=== PATIENT | female | born 1950 | race Caucasian/White ===

== ENCOUNTER → 2018-03-21 | Outpatient (CLI) | payer MEDICARE | END | disposition home or self-care (01) | LOC: RAD 08:35 | PROVIDERS: ATTEND Specialist | DX: K21.9 Gastro-esophageal reflux disease without esophagitis (principal); R18.8 Other ascites; K44.9 Diaphragmatic hernia without obstruction or gangrene | CPT/HCPCS: 74245 ==

== ENCOUNTER 2018-04-01 05:20 | Inpatient (IN) | payer MEDICARE ==
[2018-03-29 09:50] LABS: BASOPHILS % (AUTO) 0 % (0-1); EOSINOPHILS # (AUTO) 0.01 x10^3/uL (0-0.4); EOSINOPHILS % (AUTO) 0 % (1-7); LYMPHOCYTES # (AUTO) 1.05 x10^3/uL (1-3.4); LYMPHOCYTES % (AUTO) 10 % (22-44); MD NO; MEAN CORPUSCULAR HEMOGLOBIN 23.7 pg (27.0-34.8); MEAN CORPUSCULAR HGB CONC 32.2 g/dL (32.4-35.8); MEAN CORPUSCULAR VOLUME 73.7 fL (80-100); MEAN PLATELET VOLUME 7.5 fL (7.4-10.4); MONOCYTES # (AUTO) 0.77 x10^3/uL (0.2-0.8); MONOCYTES % (AUTO) 7 % (2-9); NEUTROPHILS # (AUTO) 9.02 x10^3/uL (1.8-6.8); NEUTROPHILS % (AUTO) 83 % (42-75); PLATELET COUNT 625 x10^3/uL (130-400); RED BLOOD COUNT 5.28 x10^6/uL (3.82-5.3); RED CELL DISTRIBUTION WIDTH 19.8 % (9.6-15.2)
[2018-03-29 09:53] LABS: ALBUMIN 3.1 g/dL (3.4-5.0); ANION GAP 16 mmol/L (5-15); CHLORIDE 86 mmol/L (98-107)
[2018-03-29 09:57] LABS: ALANINE AMINOTRANSFERASE 23 U/L (12-78); ALKALINE PHOSPHATASE 59 U/L (45-117); BILIRUBIN,TOTAL 0.6 mg/dL (0.2-1.0); CREATININE 1.34 mg/dL (0.55-1.02); TOTAL PROTEIN 6.7 g/dL (6.4-8.2)
[2018-03-29 10:08] LABS: INTERNATIONAL NORMALIZED RATIO 1.08 (0.93-1.1); PROTHROMBIN TIME 11.2 Seconds (9.6-11.5)
[~2018-04-01] VITALS: Ht 154.9 cm; Wt 73.7 kg
[~2018-04-01 05:20] MED LIST: FURO20TA3 PO; MYCO500T PO; OMEP-110 PO; SPIR50TA4 PO
[2018-04-01] MEDS ORDERED: LACTATED RINGERS 1,000 ML IV SCH (06:01)
[2018-04-01 06:15] VITALS: BP 119/79
[2018-04-01] MEDS ORDERED: HEPARIN 1,000 UNITS/ML, 10ML ONE (06:51)
[2018-04-01] MEDS ORDERED: INDOCYANINE GREEN 25 MG VIAL ONE (06:51)
[2018-04-01] MEDS ORDERED: BUPIVACAINE/PF-EPI 0.25% 1:200K ONE (06:51)
[2018-04-01] MEDS ORDERED: FENTANYL PF 250 MCG/5ML ONE (07:25)
[2018-04-01] MEDS ORDERED: MIDAZOLAM 1 MG/ML, 2ML ONE (07:25)
[2018-04-01] MEDS ORDERED: GLYCOPYRROLATE 0.2MG/1ML, 5ML ONE (07:44)
[2018-04-01] MEDS ORDERED: ROCURONIUM 10 MG/ML,10ML ONE (07:44)
[2018-04-01] MEDS ORDERED: ONDANSETRON 2MG/ML, 2ML ONE (07:44)
[2018-04-01] MEDS ORDERED: DEXAMETHASONE 4 MG/ML, 1ML ONE (07:44)
[2018-04-01] MEDS ORDERED: CEFAZOLIN 1,000 MG ONE (07:44)
[2018-04-01] MEDS ORDERED: PHENYLEPHRINE 10 MG/ML ONE (07:44)
[2018-04-01] MEDS ORDERED: PROPOFOL 10 MG/ML, 20ML ONE (07:44)
[2018-04-01] MEDS ORDERED: NEOSTIGMINE 1 MG/ML, 10ML ONE (07:44)
[2018-04-01] MEDS ORDERED: OXYcodone 5 MG/5 ML ORAL.SOL UDC PO PRN (08:00)
[2018-04-01] MEDS ORDERED: ONDANSETRON ODT 8 MG PO PRN (08:00)
[2018-04-01] MEDS ORDERED: HYDROmorphone 1 MG/ML, 1ML IV PRN (08:00)
[2018-04-01] MEDS ORDERED: MORPHINE SULFATE 4 MG/ML, 1ML IVPush PRN (08:00)
[2018-04-01] MEDS ORDERED: FENTANYL PF 100 MCG/2ML IV PRN (08:00)
[2018-04-01] MEDS ORDERED: ACETAMINOPHEN 325 MG TABLET PO PRN (08:00)
[2018-04-01] MEDS ORDERED: PROMETHAZINE 25 MG/ML, 1ML IV PRN (08:00)
[2018-04-01] MEDS ORDERED: BUPIVACAINE/PF-EPI 0.25% 1:200K INFIL ONE (08:30)
[2018-04-01] MEDS ORDERED: SUGAMMADEX 200 MG/2 ML IVPush ONE (09:28)
[2018-04-01] MEDS ORDERED: MEPERIDINE/PF 50 MG/ML ONE (10:06)
[2018-04-01] MEDS: MEPERIDINE/PF 25MG/0.5ML IVPush PRN ×2 (10:23→10:39)
[2018-04-01] MEDS ORDERED: OXYcodone 5 MG/5 ML ORAL.SOL UDC ONE (10:30)
[2018-04-01] MEDS ORDERED: ACETAMINOPHEN 650 MG/20.3 ML UDC ONE (10:30)
== END 2018-04-01 16:10 | disposition home or self-care (01) | DRG 736 ==
LOC: ORIP 05:20
PROVIDERS: ADMIT Specialist; ATTEND Specialist
PROC: 0UT04ZZ Resection of Right Ovary, Percutaneous Endoscopic Approach (ICD-10-PCS; 2018-04-01)
PROC: 0DTJ4ZZ Resection of Appendix, Percutaneous Endoscopic Approach (ICD-10-PCS; 2018-04-01)
PROC: 8E0W4CZ Robotic Assisted Procedure of Trunk Region, Percutaneous Endoscopic Approach (ICD-10-PCS; 2018-04-01)
PROC: 8E0W3CZ Robotic Assisted Procedure of Trunk Region, Percutaneous Approach (ICD-10-PCS; 2018-04-01)
PROC: 0UT54ZZ Resection of Right Fallopian Tube, Percutaneous Endoscopic Approach (ICD-10-PCS; principal; 2018-04-01 07:30)
DX: C56.9 Malignant neoplasm of unspecified ovary (principal); N17.0 Acute kidney failure with tubular necrosis; C78.6 Secondary malignant neoplasm of retroperitoneum and peritoneum; R18.8 Other ascites; J91.0 Malignant pleural effusion; Z90.710 Acquired absence of both cervix and uterus; Z79.899 Other long term (current) drug therapy
CPT/HCPCS: 36415; 71046; 80053; 85025; 85610; 85730; 86304; 86850; 86900; 86923; 88304; 88305; 93005; J0690; J1100; J1644; J2175; J2250; J2405; J2704; J2710; J3010; J3490; J2370; J7120

== ENCOUNTER 2018-04-12 23:32 | Inpatient (IN) | payer MEDICARE ==
[~2018-04-12] VITALS: Ht 154.9 cm; Wt 72.0 kg
[2018-04-13] MEDS ORDERED: MORPHINE SULFATE 4 MG/ML, 1ML ONE (00:15)
[2018-04-13] MEDS ORDERED: SODIUM CHLORIDE FLUSH 10ML SYR IVF ONE (00:30)
[2018-04-13] MEDS ORDERED: MORPHINE SULFATE 4 MG/ML, 1ML IVPush PRN (00:30)
[2018-04-13 01:01] LABS: BASOPHILS # (AUTO) 0.07 x10^3/uL (0-0.1); BASOPHILS % (AUTO) 1 % (0-1); EOSINOPHILS # (AUTO) 0.01 x10^3/uL (0-0.4); EOSINOPHILS % (AUTO) 0 % (1-7); LYMPHOCYTES # (AUTO) 1.25 x10^3/uL (1-3.4); LYMPHOCYTES % (AUTO) 14 % (22-44); MD NO; MEAN CORPUSCULAR HEMOGLOBIN 24.7 pg (27.0-34.8); MEAN CORPUSCULAR HGB CONC 32.9 g/dL (32.4-35.8); MEAN CORPUSCULAR VOLUME 75.1 fL (80-100); MEAN PLATELET VOLUME 6.4 fL (7.4-10.4); MONOCYTES % (AUTO) 6 % (2-9); NEUTROPHILS % (AUTO) 80 % (42-75); PLATELET COUNT 704 x10^3/uL (130-400); RED BLOOD COUNT 4.17 x10^6/uL (3.82-5.3); RED CELL DISTRIBUTION WIDTH 21.2 % (9.6-15.2)
[2018-04-13 01:11] LABS: INTERNATIONAL NORMALIZED RATIO 1.04 (0.93-1.1); PROTHROMBIN TIME 10.7 Seconds (9.6-11.5)
[2018-04-13 01:13] LABS: ALBUMIN 2.5 g/dL (3.4-5.0); ANION GAP 8 mmol/L (5-15); CALCIUM 8.2 mg/dL (8.5-10.1); CHLORIDE 93 mmol/L (98-107)
[2018-04-13 01:18] LABS: ALANINE AMINOTRANSFERASE 19 U/L (12-78); ALKALINE PHOSPHATASE 102 U/L (45-117); BILIRUBIN,TOTAL 0.5 mg/dL (0.2-1.0); CREATININE 0.88 mg/dL (0.55-1.02); TOTAL PROTEIN 5.9 g/dL (6.4-8.2)
[2018-04-13 03:00] VITALS: BP 134/86
[2018-04-13 03:08] VITALS: BP 134/86
[2018-04-13] MEDS ORDERED: DOCUSATE 100 MG CAPSULE PO PRN (04:30)
[2018-04-13] MEDS ORDERED: PROMETHAZINE 25 MG/ML, 1ML IM PRN (04:30)
[2018-04-13] MEDS ORDERED: ONDANSETRON ODT 4 MG PO PRN (04:30)
[2018-04-13] MEDS ORDERED: hydrALAzine 20 MG/ML, 1ML IVPush PRN (04:30)
[2018-04-13] MEDS ORDERED: OXYcodone IR 5MG TABLET PO PRN (04:30)
[2018-04-13] MEDS ORDERED: POLYETHYLENE GLYCOL 17 GM PACKET PO PRN (04:30)
[2018-04-13] MEDS ORDERED: LABETALOL 5MG/ML, 20ML IVPush PRN (04:30)
[2018-04-13] MEDS ORDERED: morphine SULFATE 10 MG/ML, 1ML IVPush PRN (04:30)
[2018-04-13] MEDS ORDERED: ONDANSETRON 2MG/ML, 2ML IVPush PRN (04:30)
[2018-04-13] MEDS ORDERED: BISACODYL 10 MG SUPP PR PRN (04:30)
[2018-04-13] MEDS ORDERED: ENALAPRILAT 1.25 MG/ML, 2ML IVPush PRN (04:30)
[2018-04-13] MEDS: ALBUMIN HUMAN 25% 100 ML IV SCH ×3 (04:33→20:08)
[2018-04-13] MEDS: HEPARIN 5,000 UNITS/ML, 1ML SQ SCH ×3 (04:34→20:10)
[2018-04-13] MEDS: FUROSEMIDE 20 MG/2 ML IV SCH ×2 (04:34→08:42)
[2018-04-13 06:44] LABS: HEMOGLOBIN A1C 6.2 % (4.2-6.3)
[2018-04-13 06:51] LABS: CULTURE INDICATED? YES; MICROSCOPIC AUTO
[2018-04-13 06:53] LABS: FREE T4 (FREE THYROXINE) 1.27 ng/dL (0.76-1.46); THYROID STIMULATING HORMONE 31.5 mIU/L (0.358-3.740)
[2018-04-13] MEDS: CEFTRIAXONE 1,000 MG in SODIUM CHLORIDE 0.9% 50 ML IV SCH (08:42)
[2018-04-13] MEDS: SPIRONOLACTONE 50 MG TABLET PO SCH (08:42)
[2018-04-13] MEDS: OMEPRAZOLE 20 MG CAPSULE.DR PO SCH (08:42)
[2018-04-13 08:59] LABS: ANION GAP 14 mmol/L (5-15); CHLORIDE 94 mmol/L (98-107)
[2018-04-13 09:01] LABS: CREATININE 0.91 mg/dL (0.55-1.02)
[2018-04-13 09:45] VITALS: BP 102/68
[2018-04-13 13:25] VITALS: BP 98/63
[2018-04-13] MEDS ORDERED: AMLODIPINE 5 MG TABLET PO ONE (16:00)
[2018-04-13] MEDS ORDERED: POTASSIUM CHLORIDE 20 MEQ TAB.ER.PRT PO SCH (17:00)
[2018-04-13 17:46] LABS: ANION GAP 10 mmol/L (5-15); CALCIUM 7.9 mg/dL (8.5-10.1); CHLORIDE 93 mmol/L (98-107); CREATININE 0.87 mg/dL (0.55-1.02)
[2018-04-13 19:47] VITALS: BP 103/68
[2018-04-14 01:32] VITALS: BP 102/65
[2018-04-14 04:45] LABS: BASOPHILS # (AUTO) 0.07 x10^3/uL (0-0.1); BASOPHILS % (AUTO) 1 % (0-1); EOSINOPHILS # (AUTO) 0.02 x10^3/uL (0-0.4); EOSINOPHILS % (AUTO) 0 % (1-7); LYMPHOCYTES # (AUTO) 0.91 x10^3/uL (1-3.4); LYMPHOCYTES % (AUTO) 14 % (22-44); MD NO; MEAN CORPUSCULAR HEMOGLOBIN 24.6 pg (27.0-34.8); MEAN CORPUSCULAR HGB CONC 32.9 g/dL (32.4-35.8); MEAN CORPUSCULAR VOLUME 74.7 fL (80-100); MEAN PLATELET VOLUME 6.4 fL (7.4-10.4); MONOCYTES # (AUTO) 0.58 x10^3/uL (0.2-0.8); MONOCYTES % (AUTO) 9 % (2-9); NEUTROPHILS # (AUTO) 5.15 x10^3/uL (1.8-6.8); NEUTROPHILS % (AUTO) 77 % (42-75); PLATELET COUNT 583 x10^3/uL (130-400); RED BLOOD COUNT 3.75 x10^6/uL (3.82-5.3); RED CELL DISTRIBUTION WIDTH 21.5 % (9.6-15.2)
[2018-04-14] MEDS: HEPARIN 5,000 UNITS/ML, 1ML SQ SCH ×3 (04:48→20:33)
[2018-04-14] MEDS: ALBUMIN HUMAN 25% 100 ML IV SCH ×2 (04:48→11:36)
[2018-04-14] MEDS: LEVOTHYROXINE 25 MCG TABLET PO SCH (04:48)
[2018-04-14 04:49] LABS: ALANINE AMINOTRANSFERASE 13 U/L (12-78); ANION GAP 9 mmol/L (5-15); CHLORIDE 98 mmol/L (98-107)
[2018-04-14 04:52] LABS: ALKALINE PHOSPHATASE 71 U/L (45-117); BILIRUBIN,TOTAL 0.5 mg/dL (0.2-1.0); CHOL/HDL RATIO 4.2; CHOLESTEROL, TOTAL 110 mg/dL (140-239); CREATININE 0.65 mg/dL (0.55-1.02); HDL CHOL % 24 % (28-40); HDL CHOLESTEROL (DIRECT) 26 mg/dL (40-60); LDL CHOLESTEROL,CALCULATED 62 mg/dL (54-169); LDL/HDL RATIO 2.4 (0.5-3.0); TOTAL PROTEIN 5.5 g/dL (6.4-8.2); TRIGLYCERIDES 109 mg/dL (50-200); VLDL CHOLESTEROL 22 mg/dL (0-25)
[2018-04-14 07:15] VITALS: BP 108/75
[2018-04-14] MEDS: SPIRONOLACTONE 50 MG TABLET PO SCH (08:30)
[2018-04-14] MEDS: OMEPRAZOLE 20 MG CAPSULE.DR PO SCH (08:30)
[2018-04-14] MEDS: FUROSEMIDE 20 MG/2 ML IV SCH (08:30)
[2018-04-14] MEDS: CEFTRIAXONE 1,000 MG in SODIUM CHLORIDE 0.9% 50 ML IV SCH (08:30)
[2018-04-14] MEDS: CHOLECALCIFEROL 1,000 UNIT TABLET PO SCH (08:30)
[2018-04-14 12:28] VITALS: BP 99/69
[2018-04-14 19:38] VITALS: BP 101/74
[2018-04-15 03:57] VITALS: BP 106/78
[2018-04-15 04:30] LABS: ALBUMIN 3.3 g/dL (3.4-5.0); ANION GAP 9 mmol/L (5-15); CALCIUM 8.1 mg/dL (8.5-10.1); CHLORIDE 98 mmol/L (98-107); CREATININE 0.68 mg/dL (0.55-1.02)
[2018-04-15 04:31] LABS: BASOPHILS # (AUTO) 0.04 x10^3/uL (0-0.1); BASOPHILS % (AUTO) 1 % (0-1); EOSINOPHILS # (AUTO) 0.03 x10^3/uL (0-0.4); EOSINOPHILS % (AUTO) 0 % (1-7); LYMPHOCYTES # (AUTO) 1.12 x10^3/uL (1-3.4); LYMPHOCYTES % (AUTO) 14 % (22-44); MD NO; MEAN CORPUSCULAR HEMOGLOBIN 24.8 pg (27.0-34.8); MEAN CORPUSCULAR HGB CONC 32.9 g/dL (32.4-35.8); MEAN CORPUSCULAR VOLUME 75.4 fL (80-100); MEAN PLATELET VOLUME 6.5 fL (7.4-10.4); MONOCYTES # (AUTO) 0.61 x10^3/uL (0.2-0.8); MONOCYTES % (AUTO) 8 % (2-9); NEUTROPHILS # (AUTO) 6.27 x10^3/uL (1.8-6.8); NEUTROPHILS % (AUTO) 78 % (42-75); PLATELET COUNT 616 x10^3/uL (130-400); RED BLOOD COUNT 4.01 x10^6/uL (3.82-5.3); RED CELL DISTRIBUTION WIDTH 21.7 % (9.6-15.2)
[2018-04-15] MEDS: HEPARIN 5,000 UNITS/ML, 1ML SQ SCH ×2 (04:50→12:30)
[2018-04-15] MEDS: LEVOTHYROXINE 25 MCG TABLET PO SCH (04:50)
[2018-04-15 08:05] VITALS: BP 111/76
[2018-04-15] MEDS: OMEPRAZOLE 20 MG CAPSULE.DR PO SCH (09:26)
[2018-04-15] MEDS: CHOLECALCIFEROL 1,000 UNIT TABLET PO SCH (09:26)
[2018-04-15] MEDS: CEFTRIAXONE 1,000 MG in SODIUM CHLORIDE 0.9% 50 ML IV SCH (09:26)
[2018-04-15] MEDS: SPIRONOLACTONE 50 MG TABLET PO SCH (09:27)
[2018-04-15] MEDS ORDERED: FUROSEMIDE 20 MG TABLET PO SCH (09:30)
[2018-04-15] MEDS ORDERED: NITR100C56 PO (11:54)
[2018-04-15] MEDS ORDERED: FURO40TA6 PO (11:54)
[2018-04-15] MEDS ORDERED: LEVO25TA2 PO (11:54)
[2018-04-15] MEDS ORDERED: CHOL10003 PO (11:54)
[2018-04-15 13:58] VITALS: BP 132/90
== END 2018-04-15 16:00 | disposition home or self-care (01) | DRG 640 ==
LOC: ED 23:59 → 3NW 04-13 03:28
PROVIDERS: ADMIT Internal Medicine; ATTEND Internal Medicine
DX: E87.1 Hypo-osmolality and hyponatremia (principal); E43 Unspecified severe protein-calorie malnutrition; C56.9 Malignant neoplasm of unspecified ovary; C78.7 Secondary malignant neoplasm of liver and intrahepatic bile duct; J91.0 Malignant pleural effusion; R18.8 Other ascites; C78.6 Secondary malignant neoplasm of retroperitoneum and peritoneum; N39.0 Urinary tract infection, site not specified; C78.00 Secondary malignant neoplasm of unspecified lung; D50.9 Iron deficiency anemia, unspecified; E02 Subclinical iodine-deficiency hypothyroidism; E55.9 Vitamin D deficiency, unspecified; E87.6 Hypokalemia; K21.9 Gastro-esophageal reflux disease without esophagitis; K75.4 Autoimmune hepatitis; Z90.721 Acquired absence of ovaries, unilateral; Z98.1 Arthrodesis status; M79.662 Pain in left lower leg; M79.661 Pain in right lower leg; Z68.30 Body mass index [BMI] 30.0-30.9, adult
CPT/HCPCS: 36415; 71045; 80048; 80053; 80061; 81001; 82040; 82306; 82607; 82728; 83036; 83540; 83550; 83735; 83880; 84439; 84443; 84466; 85025; 85610; 85730; 87086; 93005; 93306; 93970; 96374; J0696; J1644; P9047; J1940; J7517

== ENCOUNTER 2018-04-23 16:05 | Inpatient (IN) | payer MEDICARE ==
[~2018-04-23] VITALS: Ht 154.9 cm; Wt 74.6 kg
[~2018-04-23 16:05] MED LIST changes: +CHOL10003 PO; +FURO40TA6 PO; +LEVO25TA2 PO; +NITR100C56 PO
[2018-04-23] MEDS ORDERED: SODIUM CHLORIDE 0.9% 1,000ML IVBOLUS ONE ×2 (16:30→19:30)
[2018-04-23] MEDS ORDERED: SODIUM CHLORIDE FLUSH 10ML SYR IVF ONE (16:30)
[2018-04-23] MEDS ORDERED: PROMETHAZINE 25 MG/ML, 1ML ONE (16:49)
[2018-04-23] MEDS ORDERED: MORPHINE SULFATE 4 MG/ML, 1ML ONE (16:50)
[2018-04-23 16:51] LABS: ALBUMIN 3.5 g/dL (3.4-5.0); ANION GAP 11 mmol/L (5-15); CALCIUM 8.6 mg/dL (8.5-10.1); CHLORIDE 91 mmol/L (98-107)
[2018-04-23] MEDS ORDERED: PROMETHAZINE 25 MG/ML, 1ML IM ONE (17:00)
[2018-04-23] MEDS ORDERED: ONDANSETRON 2MG/ML, 2ML IVPush ONE (17:00)
[2018-04-23] MEDS ORDERED: MORPHINE SULFATE 4 MG/ML, 1ML IVPush PRN (17:00)
[2018-04-23 17:10] LABS: MD YES; MEAN CORPUSCULAR HEMOGLOBIN 24.6 pg (27.0-34.8); MEAN CORPUSCULAR HGB CONC 33.2 g/dL (32.4-35.8); MEAN CORPUSCULAR VOLUME 73.9 fL (80-100); MEAN PLATELET VOLUME 7.6 fL (7.4-10.4); PLATELET COUNT 269 x10^3/uL (130-400); RED BLOOD COUNT 4.12 x10^6/uL (3.82-5.3); RED CELL DISTRIBUTION WIDTH 22.2 % (9.6-15.2)
[2018-04-23 17:33] LABS: EOS#(MANUAL) 0.02 x10^3/uL (0.0-0.4); EOS% (MANUAL) 3 % (1-7); LYMPH#(MANUAL) 0.43 x10^3/uL (1-3.4); LYMPHS% (MANUAL) 62 % (22-44); MONOS#(MANUAL) 0.07 x10^3/uL (0.3-2.7); MONOS% (MANUAL) 10 % (2-9); SEG#(MANUAL) 0.18 x10^3/uL (1.8-6.8); SEGS% (MANUAL) 25 % (42-75)
[2018-04-23 17:35] LABS: ANISOCYTOSIS 1+; HYPOCHROMIA 1+; MICROCYTOSIS 1+
[2018-04-23 17:36] LABS: <PLATELET ESTIMATE> ADEQUATE; <PLT MORPHOLOGY> NORMAL PLT MORPH; OVALOCYTES 1+; SMUDGE CELLS 1+
[2018-04-23 18:20] LABS: ACETONE, SERUM Trace (10mg/dL) mg/dL (Negative)
[2018-04-23 21:04] LABS: MICROSCOPIC INDICATED
[2018-04-23 21:07] LABS: CULTURE INDICATED? YES
[2018-04-23] MEDS ORDERED: SODIUM CHLORIDE 0.9% 1,000 ML IV ONE (21:15)
[2018-04-23] MEDS ORDERED: CEFEPIME 1 GM in DEXTROSE 5% 50 ML IV ONE (21:30)
[2018-04-23] MEDS ORDERED: CEFTRIAXONE 1,000 MG in SODIUM CHLORIDE 0.9% 50 ML IV ONE (21:30)
[2018-04-23 22:05] VITALS: BP 141/84
[2018-04-23 22:27] VITALS: BP 141/84
[2018-04-23] MEDS ORDERED: LIDOCAINE/PRILOCAINE CRM W/TEG 5GM TP PRN (23:00)
[2018-04-24] MEDS ORDERED: TBO-FILGRASTIM 480 MCG/0.8 ML SQ ONE
[2018-04-24] MEDS ORDERED: OXYcodone/APAP 5/325MG TABLET PO PRN
[2018-04-24 04:54] LABS: MEAN CORPUSCULAR HEMOGLOBIN 25.1 pg (27.0-34.8); MEAN CORPUSCULAR HGB CONC 33.3 g/dL (32.4-35.8); MEAN CORPUSCULAR VOLUME 75.2 fL (80-100); RED BLOOD COUNT 3.37 x10^6/uL (3.82-5.3); RED CELL DISTRIBUTION WIDTH 21.9 % (9.6-15.2)
[2018-04-24 04:57] VITALS: BP 135/87
[2018-04-24 05:24] LABS: MD YES; MEAN PLATELET VOLUME 7.8 fL (7.4-10.4); PLATELET COUNT 182 x10^3/uL (130-400)
[2018-04-24 05:30] LABS: ANISOCYTOSIS 1+; HYPOCHROMIA 1+; LYMPH#(MANUAL) 0.38 x10^3/uL (1-3.4); LYMPHS% (MANUAL) 76 % (22-44); MICROCYTOSIS 1+; OVALOCYTES 1+; SEG#(MANUAL) 0.12 x10^3/uL (1.8-6.8); SEGS% (MANUAL) 24 % (42-75); SMUDGE CELLS 1+
[2018-04-24 05:31] LABS: <PLATELET ESTIMATE> ADEQUATE; <PLT MORPHOLOGY> NORMAL PLT MORPH
[2018-04-24] MEDS: SODIUM CHLORIDE 0.9% 1,000 ML IV SCH ×3 (06:15→21:46)
[2018-04-24] MEDS: ONDANSETRON 2MG/ML, 2ML IVPush PRN ×3 (06:17→21:45)
[2018-04-24 07:52] VITALS: BP 118/79
[2018-04-24] MEDS ORDERED: POTASSIUM CHLORIDE 40 MEQ in SODIUM CHLORIDE 0.9% 500 ML IV ONE (10:30)
[2018-04-24 12:25] VITALS: BP 124/78
[2018-04-24] MEDS ORDERED: SPIRONOLACTONE 25 MG TABLET ONE (13:08)
[2018-04-24] MEDS: CEFEPIME 1 GM in DEXTROSE 5% 50 ML IV SCH ×2 (13:14→21:45)
[2018-04-24] MEDS: OMEPRAZOLE 20 MG CAPSULE.DR PO SCH (13:14)
[2018-04-24] MEDS: FUROSEMIDE 40 MG TABLET PO SCH (13:15)
[2018-04-24] MEDS: SPIRONOLACTONE 50 MG TABLET PO SCH (13:15)
[2018-04-24] MEDS: CHOLECALCIFEROL 1,000 UNIT TABLET PO SCH (13:15)
[2018-04-24 19:42] VITALS: BP 154/75
[2018-04-24 20:33] LABS: CLOSTRIDIUM DIFFICILE ANTIGEN NEGATIVE; CLOSTRIDIUM DIFFICILE TOXIN NEGATIVE (Negative)
[2018-04-24] MEDS: TBO-FILGRASTIM 480 MCG/0.8 ML SQ SCH (23:01)
[2018-04-25 00:32] VITALS: BP 156/98
[2018-04-25 04:48] LABS: CHLORIDE 103 mmol/L (98-107)
[2018-04-25 04:53] LABS: ALANINE AMINOTRANSFERASE 23 U/L (12-78); ALBUMIN 2.7 g/dL (3.4-5.0); ALKALINE PHOSPHATASE 79 U/L (45-117); ANION GAP 9 mmol/L (5-15); BILIRUBIN,TOTAL 0.9 mg/dL (0.2-1.0); CALCIUM 8.2 mg/dL (8.5-10.1); CREATININE 0.54 mg/dL (0.55-1.02); TOTAL PROTEIN 5.9 g/dL (6.4-8.2)
[2018-04-25 05:05] LABS: MEAN CORPUSCULAR HEMOGLOBIN 25.5 pg (27.0-34.8); MEAN CORPUSCULAR HGB CONC 33.6 g/dL (32.4-35.8); MEAN CORPUSCULAR VOLUME 75.9 fL (80-100); MEAN PLATELET VOLUME 7.1 fL (7.4-10.4); PLATELET COUNT 164 x10^3/uL (130-400); RED BLOOD COUNT 3.46 x10^6/uL (3.82-5.3); RED CELL DISTRIBUTION WIDTH 22.1 % (9.6-15.2)
[2018-04-25] MEDS: LEVOTHYROXINE 25 MCG TABLET PO SCH ×2 (05:16→08:00)
[2018-04-25] MEDS: SODIUM CHLORIDE 0.9% 1,000 ML IV SCH ×3 (05:16→21:00)
[2018-04-25] MEDS: CEFEPIME 1 GM in DEXTROSE 5% 50 ML IV SCH (05:16)
[2018-04-25] MEDS: PROCHLORPERAZINE 5 MG/ML, 2ML IVPush PRN ×2 (05:16→20:54)
[2018-04-25 05:32] LABS: MD YES
[2018-04-25 05:49] LABS: <PLATELET ESTIMATE> ADEQUATE; <PLT MORPHOLOGY> NORMAL PLT MORPH; ANISOCYTOSIS 1+; BAND#(MANUAL) 0.14 x10^3/uL; BANDS%(MANUAL) 16 % (0-7); HYPOCHROMIA 1+; LYMPH#(MANUAL) 0.23 x10^3/uL (1-3.4); LYMPHS% (MANUAL) 26 % (22-44); METAMYELOCYTES# (MANUAL) 0.02 x10^3/uL (0-0); METAMYELOCYTES% (MANUAL) 2 % (0-1); MICROCYTOSIS 1+; MONOS#(MANUAL) 0.23 x10^3/uL (0.3-2.7); MONOS% (MANUAL) 26 % (2-9); OVALOCYTES 1+; POLYCHROMASIA 1+; SEG#(MANUAL) 0.27 x10^3/uL (1.8-6.8); SEGS% (MANUAL) 30 % (42-75)
[2018-04-25 05:50] LABS: TOXIC GRAN 1+
[2018-04-25 07:33] VITALS: BP 131/85
[2018-04-25] MEDS: CHOLECALCIFEROL 1,000 UNIT TABLET PO SCH (08:01)
[2018-04-25] MEDS: OMEPRAZOLE 20 MG CAPSULE.DR PO SCH (08:01)
[2018-04-25] MEDS: FUROSEMIDE 40 MG TABLET PO SCH (08:01)
[2018-04-25] MEDS: SPIRONOLACTONE 50 MG TABLET PO SCH (08:02)
[2018-04-25] MEDS ORDERED: ERTAPENEM 1 GM in SODIUM CHLORIDE 0.9% 50 ML IV SCH (13:00)
[2018-04-25 13:18] VITALS: BP 136/82
[2018-04-25] MEDS: POTASSIUM CHLORIDE 20 MEQ PACKET PO SCH (20:54)
[2018-04-25 21:30] VITALS: BP 136/87
[2018-04-25] MEDS: TBO-FILGRASTIM 480 MCG/0.8 ML SQ SCH (22:13)
[2018-04-26 01:01] VITALS: BP 99/59
[2018-04-26 03:26] VITALS: BP 126/79
[2018-04-26] MEDS: SODIUM CHLORIDE 0.9% 1,000 ML IV SCH ×3 (05:00→20:22)
[2018-04-26 05:10] LABS: MEAN CORPUSCULAR HEMOGLOBIN 25.1 pg (27.0-34.8); MEAN CORPUSCULAR HGB CONC 33.1 g/dL (32.4-35.8); MEAN CORPUSCULAR VOLUME 75.9 fL (80-100); MEAN PLATELET VOLUME 7.4 fL (7.4-10.4); PLATELET COUNT 111 x10^3/uL (130-400); RED BLOOD COUNT 3.15 x10^6/uL (3.82-5.3); RED CELL DISTRIBUTION WIDTH 22.1 % (9.6-15.2)
[2018-04-26 05:14] LABS: ANION GAP 11 mmol/L (5-15); CALCIUM 7.9 mg/dL (8.5-10.1); CHLORIDE 102 mmol/L (98-107); CREATININE 0.47 mg/dL (0.55-1.02)
[2018-04-26 05:44] LABS: MD YES
[2018-04-26 05:47] LABS: BAND#(MANUAL) 0.42 x10^3/uL; BANDS%(MANUAL) 13 % (0-7)
[2018-04-26 05:48] LABS: LYMPH#(MANUAL) 0.58 x10^3/uL (1-3.4); LYMPHS% (MANUAL) 18 % (22-44); MONOS#(MANUAL) 0.29 x10^3/uL (0.3-2.7); MONOS% (MANUAL) 9 % (2-9); SEG#(MANUAL) 1.92 x10^3/uL (1.8-6.8); SEGS% (MANUAL) 60 % (42-75)
[2018-04-26 05:49] LABS: <PLATELET ESTIMATE> DECREASED; <PLT MORPHOLOGY> NORMAL PLT MORPH; ANISOCYTOSIS 1+; MICROCYTOSIS 1+; OVALOCYTES 1+; POLYCHROMASIA 1+
[2018-04-26] MEDS: LEVOTHYROXINE 25 MCG TABLET PO SCH (05:49)
[2018-04-26 05:51] LABS: TOXIC GRAN 1+
[2018-04-26] MEDS: POTASSIUM CHLORIDE 20 MEQ PACKET PO SCH ×2 (07:52→20:22)
[2018-04-26] MEDS: CHOLECALCIFEROL 1,000 UNIT TABLET PO SCH (07:52)
[2018-04-26] MEDS: OMEPRAZOLE 20 MG CAPSULE.DR PO SCH (07:52)
[2018-04-26] MEDS: SPIRONOLACTONE 50 MG TABLET PO SCH (07:53)
[2018-04-26 08:20] VITALS: BP 116/77
[2018-04-26] MEDS ORDERED: POTASSIUM CHLORIDE 30 MEQ in SODIUM CHLORIDE 0.9% 500 ML IV ONE (11:30)
[2018-04-26 14:05] VITALS: BP 155/91
[2018-04-26 18:51] VITALS: BP 120/84
[2018-04-26] MEDS: SULFAMETH./TRIMETHOPRIM DS 800MG/160MG TABLET PO SCH (20:22)
[2018-04-26] MEDS: TBO-FILGRASTIM 480 MCG/0.8 ML SQ SCH (20:22)
[2018-04-27 01:06] VITALS: BP 116/74
[2018-04-27 05:01] LABS: ANION GAP 5 mmol/L (5-15); CALCIUM 7.9 mg/dL (8.5-10.1); CHLORIDE 106 mmol/L (98-107)
[2018-04-27 05:02] LABS: CREATININE 0.41 mg/dL (0.55-1.02)
[2018-04-27 05:11] LABS: MEAN CORPUSCULAR HEMOGLOBIN 24.9 pg (27.0-34.8); MEAN CORPUSCULAR VOLUME 75.4 fL (80-100); RED BLOOD COUNT 3.12 x10^6/uL (3.82-5.3)
[2018-04-27 06:13] LABS: MEAN PLATELET VOLUME 7.9 fL (7.4-10.4); PLATELET COUNT 88 x10^3/uL (130-400)
[2018-04-27 06:14] LABS: MD YES
[2018-04-27 06:16] LABS: ANISOCYTOSIS 1+; BAND#(MANUAL) 1.14 x10^3/uL; BANDS%(MANUAL) 15 % (0-7); LYMPH#(MANUAL) 1.06 x10^3/uL (1-3.4); LYMPHS% (MANUAL) 14 % (22-44); MICROCYTOSIS 1+; MONOS#(MANUAL) 0.38 x10^3/uL (0.3-2.7); MONOS% (MANUAL) 5 % (2-9); POLYCHROMASIA 1+; SEG#(MANUAL) 5.02 x10^3/uL (1.8-6.8); SEGS% (MANUAL) 66 % (42-75)
[2018-04-27 06:17] LABS: OVALOCYTES 1+; SMUDGE CELLS 1+; TOXIC GRAN 1+
[2018-04-27 06:19] LABS: <PLATELET ESTIMATE> DECREASED; <PLT MORPHOLOGY> NORMAL PLT MORPH
[2018-04-27] MEDS: LEVOTHYROXINE 25 MCG TABLET PO SCH (06:22)
[2018-04-27 07:01] VITALS: BP 131/81
[2018-04-27] MEDS: OMEPRAZOLE 20 MG CAPSULE.DR PO SCH (08:16)
[2018-04-27] MEDS: SPIRONOLACTONE 50 MG TABLET PO SCH (08:17)
[2018-04-27] MEDS: SODIUM CHLORIDE 0.9% 1,000 ML IV SCH (08:17)
[2018-04-27] MEDS: CHOLECALCIFEROL 1,000 UNIT TABLET PO SCH (08:17)
[2018-04-27] MEDS: SULFAMETH./TRIMETHOPRIM DS 800MG/160MG TABLET PO SCH (08:18)
[2018-04-27] MEDS: POTASSIUM CHLORIDE 20 MEQ PACKET PO SCH (08:18)
[2018-04-27] MEDS ORDERED: SULF1TAB24 PO (10:14)
[2018-04-27] MEDS ORDERED: PROC10TA78 PO (10:16)
== END 2018-04-27 12:27 | disposition home or self-care (01) | DRG 871 ==
LOC: ED 17:58 → EDIP 21:09 → 3NW 22:01
PROVIDERS: ADMIT Specialist; ATTEND Specialist
DX: A41.9 Sepsis, unspecified organism (principal); D61.810 Antineoplastic chemotherapy induced pancytopenia; E87.1 Hypo-osmolality and hyponatremia; N39.0 Urinary tract infection, site not specified; C56.9 Malignant neoplasm of unspecified ovary; K56.7 Ileus, unspecified; Z92.21 Personal history of antineoplastic chemotherapy; Z90.721 Acquired absence of ovaries, unilateral; E86.0 Dehydration; B96.89 Other specified bacterial agents as the cause of diseases classified elsewhere; D69.6 Thrombocytopenia, unspecified; E87.6 Hypokalemia; J45.909 Unspecified asthma, uncomplicated; K21.9 Gastro-esophageal reflux disease without esophagitis; K52.9 Noninfective gastroenteritis and colitis, unspecified; K75.4 Autoimmune hepatitis; Z85.05 Personal history of malignant neoplasm of liver; Z96.649 Presence of unspecified artificial hip joint; R65.20 Severe sepsis without septic shock
CPT/HCPCS: 36415; 74021; 80048; 80053; 81001; 82010; 82040; 83605; 83735; 85025; 87040; 87077; 87086; 87186; 87324; 96361; 96372; 96374; 96375; 99285; J0692; J1335; J2405; J2550; J3480; J0780; J1447; J7030; J7040; J7517

== ENCOUNTER → 2018-05-10 | Outpatient (CLI) | payer MEDICARE ==
[~2018-05-10] MED LIST changes: +PROC10TA78 PO; +SULF1TAB24 PO
== END | disposition home or self-care (01) ==
LOC: RAD 14:39
PROVIDERS: ATTEND Internal Medicine
DX: J90 Pleural effusion, not elsewhere classified (principal); C56.9 Malignant neoplasm of unspecified ovary
CPT/HCPCS: 71046

== ENCOUNTER 2018-05-18 05:34 | Inpatient (IN) | payer MEDICARE ==
[~2018-05-18] VITALS: Ht 152.4 cm; Wt 62.1 kg
[2018-05-18] MEDS ORDERED: SODIUM CHLORIDE FLUSH 10ML SYR IVF ONE (07:30)
[2018-05-18] MEDS ORDERED: SODIUM CHLORIDE 0.9% 1,000ML IVBOLUS ONE (07:30)
[2018-05-18 07:59] LABS: MEAN CORPUSCULAR HEMOGLOBIN 26.4 pg (27.0-34.8); MEAN CORPUSCULAR HGB CONC 33.2 g/dL (32.4-35.8); MEAN CORPUSCULAR VOLUME 79.4 fL (80-100); MEAN PLATELET VOLUME 7.7 fL (7.4-10.4); PLATELET COUNT 316 x10^3/uL (130-400); RED BLOOD COUNT 3.59 x10^6/uL (3.82-5.3); RED CELL DISTRIBUTION WIDTH 24.9 % (9.6-15.2)
[2018-05-18 08:10] LABS: ALANINE AMINOTRANSFERASE 20 U/L (12-78); ALBUMIN 3.8 g/dL (3.4-5.0); ANION GAP 11 mmol/L (5-15); CALCIUM 8.7 mg/dL (8.5-10.1); CHLORIDE 90 mmol/L (98-107); CREATININE 1.08 mg/dL (0.55-1.02)
[2018-05-18 08:13] LABS: MICROSCOPIC INDICATED
[2018-05-18 08:15] LABS: ALKALINE PHOSPHATASE 131 U/L (45-117); BILIRUBIN,TOTAL 0.8 mg/dL (0.2-1.0); T4 (THYROXINE) 10.2 mcg/dL (4.8-13.9); TOTAL PROTEIN 6.6 g/dL (6.4-8.2); TROPONIN I < 0.015 ng/mL (0.000-0.045)
[2018-05-18 08:15] LABS: CULTURE INDICATED? NO
[2018-05-18 08:20] LABS: MD YES
[2018-05-18 08:32] LABS: <PLATELET ESTIMATE> ADEQUATE; <PLT MORPHOLOGY> NORMAL PLT MORPH; ANISOCYTOSIS 1+; BAND#(MANUAL) 0.04 x10^3/uL; BANDS%(MANUAL) 2 % (0-7); EOS#(MANUAL) 0.02 x10^3/uL (0.0-0.4); EOS% (MANUAL) 1 % (1-7); LYMPH#(MANUAL) 1.03 x10^3/uL (1-3.4); LYMPHS% (MANUAL) 57 % (22-44); MONOS#(MANUAL) 0.38 x10^3/uL (0.3-2.7); MONOS% (MANUAL) 21 % (2-9); POLYCHROMASIA 1+; SEG#(MANUAL) 0.34 x10^3/uL (1.8-6.8); SEGS% (MANUAL) 19 % (42-75)
[2018-05-18] MEDS ORDERED: SODIUM CHLORIDE 0.9% 1,000 ML IV ONE (09:27)
[2018-05-18] MEDS ORDERED: SODIUM CHLORIDE FLUSH 10ML SYR IVF PRN (09:30)
[2018-05-18 11:22] VITALS: BP 103/66
[2018-05-18] MEDS: SODIUM CHLORIDE 0.9% 1,000 ML IV SCH (12:49)
[2018-05-18 14:30] VITALS: BP 101/71
[2018-05-18 20:35] VITALS: BP 111/63
[2018-05-19] MEDS: SODIUM CHLORIDE 0.9% 1,000 ML IV SCH ×3 (00:33→16:53)
[2018-05-19 00:37] VITALS: BP 123/70
[2018-05-19 04:36] LABS: MEAN CORPUSCULAR HEMOGLOBIN 27.2 pg (27.0-34.8); MEAN CORPUSCULAR HGB CONC 33.4 g/dL (32.4-35.8); MEAN CORPUSCULAR VOLUME 81.5 fL (80-100); MEAN PLATELET VOLUME 7.9 fL (7.4-10.4); PLATELET COUNT 183 x10^3/uL (130-400); RED BLOOD COUNT 2.87 x10^6/uL (3.82-5.3); RED CELL DISTRIBUTION WIDTH 24.1 % (9.6-15.2)
[2018-05-19 04:44] LABS: ALANINE AMINOTRANSFERASE 16 U/L (12-78); ALKALINE PHOSPHATASE 87 U/L (45-117); BILIRUBIN,TOTAL 0.7 mg/dL (0.2-1.0); CREATININE 0.63 mg/dL (0.55-1.02); TOTAL PROTEIN 5.5 g/dL (6.4-8.2)
[2018-05-19 04:51] LABS: ANION GAP 11 mmol/L (5-15); CHLORIDE 99 mmol/L (98-107)
[2018-05-19 05:48] LABS: MD YES
[2018-05-19 05:52] LABS: <PLATELET ESTIMATE> ADEQUATE; <PLT MORPHOLOGY> NORMAL PLT MORPH; ANISOCYTOSIS 2+; BAND#(MANUAL) 0.46 x10^3/uL; BANDS%(MANUAL) 12 % (0-7); LYMPH#(MANUAL) 1.44 x10^3/uL (1-3.4); LYMPHS% (MANUAL) 38 % (22-44); MONOS#(MANUAL) 0.53 x10^3/uL (0.3-2.7); MONOS% (MANUAL) 14 % (2-9); SEG#(MANUAL) 1.37 x10^3/uL (1.8-6.8); SEGS% (MANUAL) 36 % (42-75)
[2018-05-19 09:33] VITALS: BP 132/82
[2018-05-19] MEDS: SPIRONOLACTONE 50 MG TABLET PO SCH ×2 (09:39→21:53)
[2018-05-19] MEDS: OMEPRAZOLE 20 MG CAPSULE.DR PO SCH (09:39)
[2018-05-19] MEDS: FUROSEMIDE 20 MG TABLET PO SCH (09:39)
[2018-05-19] MEDS ORDERED: MAGNESIUM HYDROXIDE 8%, 30ML UDC PO PRN (11:00)
[2018-05-19 13:45] VITALS: BP 105/66
[2018-05-19 19:20] VITALS: BP 101/64
[2018-05-20] VITALS (7 sets, daily range): BP systolic 105–122; BP diastolic 69–84
[2018-05-20] MEDS: SODIUM CHLORIDE 0.9% 1,000 ML IV SCH ×2 (01:44→07:56)
[2018-05-20 04:40] LABS: MEAN CORPUSCULAR VOLUME 81.8 fL (80-100); MEAN PLATELET VOLUME 8.3 fL (7.4-10.4); PLATELET COUNT 143 x10^3/uL (130-400); RED BLOOD COUNT 2.66 x10^6/uL (3.82-5.3); RED CELL DISTRIBUTION WIDTH 24.6 % (9.6-15.2)
[2018-05-20 04:53] LABS: ANION GAP 10 mmol/L (5-15); CALCIUM 7.7 mg/dL (8.5-10.1); CHLORIDE 99 mmol/L (98-107)
[2018-05-20 05:04] LABS: ALANINE AMINOTRANSFERASE 19 U/L (12-78); ALKALINE PHOSPHATASE 72 U/L (45-117); BILIRUBIN,TOTAL 0.5 mg/dL (0.2-1.0); CREATININE 0.51 mg/dL (0.55-1.02); TOTAL PROTEIN 5.3 g/dL (6.4-8.2)
[2018-05-20 05:55] LABS: MD YES
[2018-05-20 05:56] LABS: BAND#(MANUAL) 0.34 x10^3/uL; BANDS%(MANUAL) 4 % (0-7)
[2018-05-20 05:57] LABS: LYMPH#(MANUAL) 1.29 x10^3/uL (1-3.4); LYMPHS% (MANUAL) 15 % (22-44); MONOS#(MANUAL) 0.34 x10^3/uL (0.3-2.7); MONOS% (MANUAL) 4 % (2-9); SEG#(MANUAL) 6.62 x10^3/uL (1.8-6.8); SEGS% (MANUAL) 77 % (42-75)
[2018-05-20 05:59] LABS: ANISOCYTOSIS 2+; MICROCYTOSIS 1+
[2018-05-20 06:00] LABS: <PLATELET ESTIMATE> ADEQUATE; <PLT MORPHOLOGY> NORMAL PLT MORPH; TOXIC GRAN 1+
[2018-05-20] MEDS ORDERED: SODIUM CHLORIDE 0.9% 1,000ML IVBOLUS ONE (06:30)
[2018-05-20] MEDS: OMEPRAZOLE 20 MG CAPSULE.DR PO SCH (07:56)
[2018-05-20] MEDS: SPIRONOLACTONE 50 MG TABLET PO SCH ×2 (07:56→20:46)
[2018-05-20] MEDS: MAGNESIUM HYDROXIDE 8%, 30ML UDC PO SCH (07:57)
[2018-05-20] MEDS ORDERED: POTASSIUM CHLORIDE 40 MEQ in SODIUM CHLORIDE 0.9% 500 ML IV ONE (11:00)
[2018-05-20] MEDS: FUROSEMIDE 20 MG TABLET PO SCH (11:41)
[2018-05-20] MEDS ORDERED: DIPHENHYDRAMINE 12.5MG/5ML, 10ML UDC PO ONE (18:30)
[2018-05-20] MEDS ORDERED: ACETAMINOPHEN 325 MG TABLET PO ONE (18:30)
[2018-05-21] VITALS (7 sets, daily range): BP systolic 102–124; BP diastolic 68–83
[2018-05-21 05:50] LABS: BASOPHILS # (AUTO) 0.01 x10^3/uL (0-0.1); BASOPHILS % (AUTO) 0 % (0-1); EOSINOPHILS % (AUTO) 0 % (1-7); LYMPHOCYTES # (AUTO) 1.25 x10^3/uL (1-3.4); LYMPHOCYTES % (AUTO) 14 % (22-44); MD NO; MEAN CORPUSCULAR HEMOGLOBIN 27.8 pg (27.0-34.8); MEAN CORPUSCULAR HGB CONC 33.6 g/dL (32.4-35.8); MEAN CORPUSCULAR VOLUME 82.6 fL (80-100); MEAN PLATELET VOLUME 8.1 fL (7.4-10.4); MONOCYTES # (AUTO) 0.28 x10^3/uL (0.2-0.8); MONOCYTES % (AUTO) 3 % (2-9); NEUTROPHILS # (AUTO) 7.32 x10^3/uL (1.8-6.8); NEUTROPHILS % (AUTO) 83 % (42-75); PLATELET COUNT 102 x10^3/uL (130-400); RED BLOOD COUNT 3.55 x10^6/uL (3.82-5.3); RED CELL DISTRIBUTION WIDTH 20.1 % (9.6-15.2)
[2018-05-21 05:59] LABS: ANION GAP 8 mmol/L (5-15); CHLORIDE 102 mmol/L (98-107)
[2018-05-21 06:02] LABS: CREATININE 0.48 mg/dL (0.55-1.02)
[2018-05-21] MEDS: SODIUM CHLORIDE 0.9% 1,000 ML IV SCH ×4 (07:52→20:11)
[2018-05-21] MEDS: OMEPRAZOLE 20 MG CAPSULE.DR PO SCH (07:53)
[2018-05-21] MEDS: FUROSEMIDE 20 MG TABLET PO SCH (07:53)
[2018-05-21] MEDS: MAGNESIUM HYDROXIDE 8%, 30ML UDC PO SCH (07:53)
[2018-05-21] MEDS: SPIRONOLACTONE 50 MG TABLET PO SCH ×2 (07:53→20:06)
[2018-05-22 01:55] VITALS: BP 107/52
[2018-05-22] MEDS: SODIUM CHLORIDE 0.9% 1,000 ML IV SCH (04:00)
[2018-05-22 07:29] VITALS: BP 114/77
== END 2018-05-22 10:13 | disposition home or self-care (01) | DRG 808 ==
LOC: ED 06:36 → EDIP 09:27 → 3NW 10:22
PROVIDERS: ADMIT Specialist; ATTEND Specialist
PROC: 30233N1 Transfusion of Nonautologous Red Blood Cells into Peripheral Vein, Percutaneous Approach (ICD-10-PCS; principal; 2018-05-20)
DX: D70.1 Agranulocytosis secondary to cancer chemotherapy (principal); E43 Unspecified severe protein-calorie malnutrition; C56.9 Malignant neoplasm of unspecified ovary; C78.6 Secondary malignant neoplasm of retroperitoneum and peritoneum; E87.1 Hypo-osmolality and hyponatremia; J90 Pleural effusion, not elsewhere classified; D64.9 Anemia, unspecified; B18.2 Chronic viral hepatitis C; E86.0 Dehydration; Z90.49 Acquired absence of other specified parts of digestive tract; Z90.79 Acquired absence of other genital organ(s); Z79.899 Other long term (current) drug therapy; Z82.49 Family history of ischemic heart disease and other diseases of the circulatory system; Z68.26 Body mass index [BMI] 26.0-26.9, adult; T45.1X5A Adverse effect of antineoplastic and immunosuppressive drugs, initial encounter
CPT/HCPCS: 36415; 71045; 80048; 80053; 81001; 83605; 83735; 84436; 84443; 84484; 85025; 86850; 86900; 86923; 93005; 96361; 99285; G0378; J3480; J7030; J7040; J7517; P9016

== ENCOUNTER 2019-05-03 22:56 | Inpatient (IN) | payer MEDICARE ==
[~2019-05-03] VITALS: Ht 152.4 cm; Wt 56.1 kg
[~2019-05-03 22:56] MED LIST changes: +FURO-93 PO; +POTA20TA89 PO
--- NOTE | 2019-05-03 23:11 | NUR ---
PT BIB [facility] R/T WEAKNESS AND SOB TONIGHT AFTER USING THE RESTROOM. PT C/O GENERALIZED WEAKNESS. DENIES PAIN. PT ON HOSP[facility] FOR CANCER METS. PT A&OX4, MOVES ALL 4 EXTREMITIES.
--- NOTE | 2019-05-03 23:12 | NUR ---
EDMD AT BEDSIDE.
[2019-05-03] MEDS ORDERED: SODIUM CHLORIDE FLUSH 10ML SYR IVF ONE (23:30)
[2019-05-03] MEDS ORDERED: SODIUM CHLORIDE 0.9% 1,000ML IVBOLUS ONE (23:30)
[2019-05-03 23:38] LABS: MEAN CORPUSCULAR HEMOGLOBIN 27.1 pg (27.0-34.8); MEAN CORPUSCULAR HGB CONC 32.6 g/dL (32.4-35.8); MEAN PLATELET VOLUME 6.7 fL (7.4-10.4); PLATELET COUNT 359 x10^3/uL (130-400); RED BLOOD COUNT 4.32 x10^6/uL (3.82-5.3); RED CELL DISTRIBUTION WIDTH 19.6 % (9.6-15.2)
--- NOTE | 2019-05-03 23:48 | NUR ---
FAMILY AT BEDSIDE. PT AT XRAY.
[2019-05-03 23:51] LABS: ALANINE AMINOTRANSFERASE 98 U/L (12-78); ALBUMIN 2.6 g/dL (3.4-5.0); ANION GAP 14 mmol/L (5-15); CALCIUM 8.6 mg/dL (8.5-10.1); CHLORIDE 88 mmol/L (98-107); CREATININE 1.06 mg/dL (0.55-1.02)
[2019-05-03 23:54] LABS: BASOPHILS # (AUTO) 0.03 x10^3/uL (0-0.1); BASOPHILS % (AUTO) 0 % (0-1); EOSINOPHILS % (AUTO) 0 % (1-7); LYMPHOCYTES # (AUTO) 0.64 x10^3/uL (1-3.4); LYMPHOCYTES % (AUTO) 4 % (22-44); MD SCAN; MONOCYTES # (AUTO) 0.72 x10^3/uL (0.2-0.8); MONOCYTES % (AUTO) 5 % (2-9); NEUTROPHILS # (AUTO) 13.13 x10^3/uL (1.8-6.8); NEUTROPHILS % (AUTO) 90 % (42-75)
[2019-05-03 23:55] LABS: ALKALINE PHOSPHATASE 913 U/L (45-117); BILIRUBIN,TOTAL 4.4 mg/dL (0.2-1.0); TOTAL PROTEIN 6.2 g/dL (6.4-8.2)
--- NOTE | 2019-05-04 00:14 | NUR ---
Checked in with patient; resting comfortably. Requested lip balm for lips. Provided and educated about using non petroleum products in hospitals or at home with oxygen. patient and family verbalized understanding.
--- NOTE | 2019-05-04 00:34 | NUR ---
Provider to bedside; establishing a plan of care. Awaiting further orders.
[2019-05-04] MEDS ORDERED: morphine SULFATE 10 MG/ML, 1ML IVPush PRN (01:30)
[2019-05-04] MEDS ORDERED: ONDANSETRON 2MG/ML, 2ML IVPush PRN (01:30)
[2019-05-04 02:38] VITALS: BP 113/76
[2019-05-04 06:35] LABS: CULTURE INDICATED? YES; MICROSCOPIC INDICATED
[2019-05-04] MEDS: OMEPRAZOLE 20 MG CAPSULE.DR PO SCH (09:58)
[2019-05-04] MEDS: CHOLECALCIFEROL 1,000 UNIT TABLET PO SCH (09:58)
[2019-05-04 10:37] VITALS: BP 109/78
[2019-05-04] MEDS ORDERED: LIDOCAINE-MPF 1%, 5ML ONE (13:30)
[2019-05-04 18:27] VITALS: BP 105/75
[2019-05-04 20:34] VITALS: BP 110/77
[2019-05-05 02:24] VITALS: BP 113/79
[2019-05-05 08:08] VITALS: BP 105/73
[2019-05-05] MEDS: OMEPRAZOLE 20 MG CAPSULE.DR PO SCH (09:49)
[2019-05-05] MEDS: CHOLECALCIFEROL 1,000 UNIT TABLET PO SCH (09:49)
[2019-05-05] MEDS ORDERED: BISACODYL 10 MG SUPP PR ONE (11:00)
[2019-05-05 12:37] VITALS: BP 116/83
[2019-05-05] MEDS ORDERED: BISACODYL 10 MG SUPP ONE (17:29)
[2019-05-05 19:43] VITALS: BP 113/80
[2019-05-06 02:06] VITALS: BP 115/81
[2019-05-06 07:46] VITALS: BP 103/66
[2019-05-06] MEDS: CHOLECALCIFEROL 1,000 UNIT TABLET PO SCH (08:11)
[2019-05-06] MEDS: OMEPRAZOLE 20 MG CAPSULE.DR PO SCH (08:11)
[2019-05-06 14:20] VITALS: BP 112/78
[2019-05-06 19:43] VITALS: BP 109/76
[2019-05-07 08:00] VITALS: BP 109/79
[2019-05-07] MEDS: CHOLECALCIFEROL 1,000 UNIT TABLET PO SCH (10:36)
[2019-05-07] MEDS: OMEPRAZOLE 20 MG CAPSULE.DR PO SCH (10:36)
[2019-05-07 13:37] VITALS: BP 109/77
== END 2019-05-07 14:34 | disposition hospice, home (50) | DRG 754 ==
LOC: ED 05-04 00:47 → EDIP 05-04 01:02 → 4EST 05-04 02:40
PROVIDERS: ADMIT Family Medicine; ATTEND Family Medicine
PROC: 0W9G3ZZ Drainage of Peritoneal Cavity, Percutaneous Approach (ICD-10-PCS; principal; 2019-05-04)
DX: C56.9 Malignant neoplasm of unspecified ovary (principal); E43 Unspecified severe protein-calorie malnutrition; C78.6 Secondary malignant neoplasm of retroperitoneum and peritoneum; E87.1 Hypo-osmolality and hyponatremia; R18.0 Malignant ascites; D72.829 Elevated white blood cell count, unspecified; E86.0 Dehydration; J45.909 Unspecified asthma, uncomplicated; K75.4 Autoimmune hepatitis; R62.7 Adult failure to thrive; Z51.5 Encounter for palliative care; Z85.05 Personal history of malignant neoplasm of liver; Z85.43 Personal history of malignant neoplasm of ovary
CPT/HCPCS: 36415; 49083; 74022; 80053; 81001; 83690; 83880; 85025; 87070; 87086; 87205; 88112; 88305; 89051; 93005; G0378; J7517; J7030